=== PATIENT | male | born 1965 | race Two or more races ===

== ENCOUNTER 2017-05-03 22:44 | Inpatient (IN) | payer MEDICAID, OTHER ==
[~2017-05-03] VITALS: Ht 167.6 cm; Wt 55.3 kg
[~2017-05-03 22:44] MED LIST: ENAL-3 PO; FER325T PO; METO25TA62 PO; NOR10T PO; OCTR50IN; ROSU10TA16 PO; ROSU40TA PO; TRAM50TA2; TRAZ100T2 PO; TRAZ150T79 PO; WARF10TA
[2017-05-03] MEDS ORDERED: SODIUM CHLORIDE 0.9% 1,000 ML IVB ONE (23:57)
[2017-05-04 01:03] LABS: Basophils # (auto) 0 uL; Basophils % (auto) 0.3 % (0.0-2.0); Eosinophils # (auto) 0 uL; Eosinophils % (auto) 0.1 % (0.0-7.0); Hematocrit 38.2 % (41.0-53.0); Hemoglobin 12.8 g/dL (13.5-17.5); Lymphocytes # (auto) 0.8 uL; Lymphocytes % (auto) 7.1 % (10.0-50.0); Mean Corpuscular Hemoglobin 29.1 pg (28.0-32.0); Mean Corpuscular Hgb Conc. 33.6 g/dL (32.0-36.0); Mean Corpuscular Volume 86.6 fL (80.0-100.0); Mean Platelet Volume 8.1 fL (6.9-10.8); Monocytes # (auto) 0.7 uL; Monocytes % (auto) 6.2 % (0.0-12.0); Neutrophils # (auto) 10.3 uL; Neutrophils % (auto) 86.3 % (37.0-80.0); Platelet Count (auto) 335 10^3/uL (140-450); Red Cell Distribution Width 12.9 % (11.8-14.3); White Blood Cell 11.9 10^3/uL (4.4-10.8)
[2017-05-04 01:07] LABS: Allen Test Modified; Base Excess -0.1 mmol/L (-2.0-2.0); Blood 02Sat 97.5 % (96-100); Blood COHb 1.5 % (0.5-1.5); Blood MetHb 0.2 % (0.0-1.5); HCO3 24.2 mmol/L (22-26.0); HHb 2.5 % (0.0-5.0); MODE NASAL CANNULA; O2Hb 95.8 % (94.0-97.0); PCO2(T) 24.5 mmHg (35.0-45.0); PO2 123.9 mmHg (80.0-100.0); PO2(T) 74.9 mmHg (80.0-100.0); Sample Type Arterial; pH 7.421 (7.350-7.450)
[2017-05-04 01:14] LABS: Partial Thromboplastin Time 21.5 sec (22.64-33.71); Prothrombin Time 10.9 sec (9.37-12.3)
[2017-05-04 01:21] LABS: Albumin 3.3 g/dL (3.4-5.0); Calcium 8.7 mg/dL (8.5-10.1); Potassium 3.8 mmol/L (3.5-5.1)
[2017-05-04 01:23] LABS: Bilirubin, Total 0.5 mg/dL (0.2-1.0); Total Protein 6.8 g/dL (6.4-8.2)
[2017-05-04] MEDS ORDERED: LEVETIRACETAM INJ 1,000 MG in SODIUM CHL 0.9% 100 ML IV ONE (02:30)
[2017-05-04] MEDS ORDERED: ASPirin-EC 325mg tab PO ONE (02:30)
[2017-05-04] MEDS ORDERED: LEVETIRACETAM 500 MG/5ML INJ IV ONE ×3 (02:51→22:05)
[2017-05-04] MEDS ORDERED: ACETAMINOPHEN 325 MG TAB PO PRN (03:30)
[2017-05-04] MEDS ORDERED: ONDANSETRON HCL 4 MG/2 ML VIAL IV PRN (03:30)
[2017-05-04] MEDS ORDERED: DEXTROSE (50%) 50ML SYRG IV PRN (03:30)
[2017-05-04] MEDS ORDERED: MORPHINE SULF INJ 2 MG/ML SYRINGE 1ML IV PRN ×2 (03:30)
[2017-05-04] MEDS ORDERED: NITROGLYCERIN 0.4 MG SL TAB SL PRN (03:30)
[2017-05-04] MEDS: SODIUM CHLORIDE 0.9% 1,000 ML IV SCH ×2 (03:43→16:37)
[2017-05-04] MEDS: ENOXAPARIN SOD 40 MG/0.4 ML SYRINGE SC SCH ×2 (03:45→10:00)
[2017-05-04] MEDS: ACCU-CHEK COMFORT CURVE STRIP VI SCH ×3 (05:42→17:32)
[2017-05-04] MEDS: InsuLIN REG 1unit/0.01ml Soln (100units/ml) SC SCH ×3 (05:45→17:32)
[2017-05-04] MEDS: PANTOPRAZOLE 40 MG/10 ML VIAL IV SCH (10:00)
[2017-05-04] MEDS: ASPirin 81 mg TAB PO SCH (10:00)
[2017-05-04] MEDS: LEVETIRACETAM INJ 500 MG in SODIUM CHL 0.9% 100 ML IV SCH ×2 (10:40→22:43)
[2017-05-04] MEDS: HYDROcodone-ACET 5/325MG TAB PO PRN (16:48)
[2017-05-04 17:00] VITALS: BP 110/71
[2017-05-04 20:00] VITALS: BP 104/67
[2017-05-04] MEDS: CRESTOR 10 MG PO SCH (22:00)
[2017-05-04 23:35] VITALS: BP 104/61
[2017-05-05] VITALS (7 sets, daily range): BP systolic 93–151; BP diastolic 63–96
[2017-05-05] MEDS: ACCU-CHEK COMFORT CURVE STRIP VI SCH ×4 (00:05→17:51)
[2017-05-05] MEDS: InsuLIN REG 1unit/0.01ml Soln (100units/ml) SC SCH ×4 (00:12→17:51)
[2017-05-05] MEDS: HYDROcodone-ACET 5/325MG TAB PO PRN ×2 (00:39→17:42)
[2017-05-05] MEDS: SODIUM CHLORIDE 0.9% 1,000 ML IV SCH ×2 (03:53→16:57)
[2017-05-05 06:32] LABS: Basophils # (auto) 0.1 uL; Basophils % (auto) 0.4 % (0.0-2.0); Eosinophils # (auto) 0 uL; Eosinophils % (auto) 0.1 % (0.0-7.0); Hematocrit 36.4 % (41.0-53.0); Hemoglobin 12.3 g/dL (13.5-17.5); Lymphocytes % (auto) 4.8 % (10.0-50.0); Mean Corpuscular Hgb Conc. 33.8 g/dL (32.0-36.0); Mean Corpuscular Volume 88.8 fL (80.0-100.0); Mean Platelet Volume 8.5 fL (6.9-10.8); Monocytes # (auto) 0.9 uL; Neutrophils # (auto) 19.5 uL; Neutrophils % (auto) 90.7 % (37.0-80.0); Platelet Count (auto) 306 10^3/uL (140-450); Red Cell Distribution Width 13.2 % (11.8-14.3); White Blood Cell 21.5 10^3/uL (4.4-10.8)
[2017-05-05 06:51] LABS: Albumin 3.1 g/dL (3.4-5.0); BUN/Creatinine Ratio 16.7; Calcium 8.4 mg/dL (8.5-10.1); Potassium 3.2 mmol/L (3.5-5.1); Total Protein 6.4 g/dL (6.4-8.2)
[2017-05-05] MEDS: ASPirin 81 mg TAB PO SCH (10:13)
[2017-05-05] MEDS: PANTOPRAZOLE 40 MG/10 ML VIAL IV SCH (10:13)
[2017-05-05] MEDS: ENOXAPARIN SOD 40 MG/0.4 ML SYRINGE SC SCH (10:14)
[2017-05-05] MEDS ORDERED: POTASSIUM CHLORIDE 40 MEQ, LIDOCAINE 1% (LOCAL ANESTH.) 4 ML in SODIUM CHL 0.9% 100 ML IV ONE (10:30)
[2017-05-05] MEDS: LEVETIRACETAM INJ 500 MG in SODIUM CHL 0.9% 100 ML IV SCH (10:34)
[2017-05-05 19:57] LABS: Cholesterol 135 mg/dL (< 200); HDL Cholesterol 52 mg/dL (40-59); LDL Cholesterol 82 mg/dL (< 100); Triglycerides 83 mg/dL (< 150)
[2017-05-05] MEDS: CRESTOR 10 MG PO SCH (22:00)
[2017-05-06] MEDS: HYDROcodone-ACET 5/325MG TAB PO PRN ×2 (00:28→21:14)
[2017-05-06] MEDS: ACCU-CHEK COMFORT CURVE STRIP VI SCH ×4 (02:25→17:58)
[2017-05-06 05:45] VITALS: BP 149/58
[2017-05-06] MEDS: SODIUM CHLORIDE 0.9% 1,000 ML IV SCH ×2 (06:05→17:58)
[2017-05-06 07:12] LABS: Albumin 3.2 g/dL (3.4-5.0); BUN/Creatinine Ratio 16.7; Calcium 8.8 mg/dL (8.5-10.1); Potassium 3.3 mmol/L (3.5-5.1)
[2017-05-06 07:14] LABS: Basophils # (auto) 0 uL; Basophils % (auto) 0.2 % (0.0-2.0); Eosinophils # (auto) 0 uL; Eosinophils % (auto) 0.1 % (0.0-7.0); Hematocrit 39.1 % (41.0-53.0); Hemoglobin 12.9 g/dL (13.5-17.5); Lymphocytes % (auto) 5.6 % (10.0-50.0); Mean Corpuscular Hemoglobin 29.1 pg (28.0-32.0); Mean Corpuscular Hgb Conc. 33.1 g/dL (32.0-36.0); Mean Corpuscular Volume 87.8 fL (80.0-100.0); Mean Platelet Volume 9.1 fL (6.9-10.8); Monocytes # (auto) 0.7 uL; Monocytes % (auto) 3.6 % (0.0-12.0); Neutrophils # (auto) 16.6 uL; Neutrophils % (auto) 90.5 % (37.0-80.0); Nucleated Red Blood Cells % 0.1 %; Platelet Count (auto) 320 10^3/uL (140-450); Red Cell Distribution Width 12.8 % (11.8-14.3); White Blood Cell 18.4 10^3/uL (4.4-10.8)
[2017-05-06 07:15] LABS: Bilirubin, Total 0.8 mg/dL (0.2-1.0); Total Protein 6.7 g/dL (6.4-8.2)
[2017-05-06] MEDS: InsuLIN REG 1unit/0.01ml Soln (100units/ml) SC SCH ×4 (07:21→17:59)
[2017-05-06 08:00] VITALS: BP 139/81
[2017-05-06 08:24] VITALS: BP 179/81
[2017-05-06] MEDS ORDERED: LORazepam 2MG/ML-1ML VIAL IV ONE (09:00)
[2017-05-06] MEDS ORDERED: ASPirin 81 mg TAB PO SCH (10:00)
[2017-05-06] MEDS: PANTOPRAZOLE 40 MG/10 ML VIAL IV SCH (10:05)
[2017-05-06] MEDS: ENOXAPARIN SOD 40 MG/0.4 ML SYRINGE SC SCH (10:05)
[2017-05-06 14:09] VITALS: BP 128/62
[2017-05-06 17:00] VITALS: BP 153/81
[2017-05-06 21:30] VITALS: BP 136/79
[2017-05-06] MEDS ORDERED: ATORVASTATIN 20 MG TAB PO SCH (22:00)
[2017-05-07] MEDS: ACCU-CHEK COMFORT CURVE STRIP VI SCH ×2 (00:22→06:07)
[2017-05-07] MEDS: InsuLIN REG 1unit/0.01ml Soln (100units/ml) SC SCH ×2 (00:22→06:07)
[2017-05-07] MEDS: HYDROcodone-ACET 5/325MG TAB PO PRN (01:40)
[2017-05-07 04:58] VITALS: BP 138/80
[2017-05-07 07:55] VITALS: BP 132/62
[2017-05-07 11:04] VITALS: BP 132/62
== END 2017-05-07 13:45 | disposition home or self-care (01) | DRG 45 ==
LOC: EDBD 22:44 → ER 22:46 → TELE 22:47 → TELE-EAST 05-04 15:33
PROVIDERS: ADMIT Nurse Practitioner; ATTEND Internal Medicine
DX: I63.9 Cerebral infarction, unspecified (principal); G93.1 Anoxic brain damage, not elsewhere classified; E11.65 Type 2 diabetes mellitus with hyperglycemia; E44.1 Mild protein-calorie malnutrition; G40.909 Epilepsy, unspecified, not intractable, without status epilepticus; I10 Essential (primary) hypertension; E78.5 Hyperlipidemia, unspecified; F17.210 Nicotine dependence, cigarettes, uncomplicated; F12.10 Cannabis abuse, uncomplicated; F11.10 Opioid abuse, uncomplicated; I25.10 Atherosclerotic heart disease of native coronary artery without angina pectoris; K21.9 Gastro-esophageal reflux disease without esophagitis; Z79.82 Long term (current) use of aspirin; Z79.899 Other long term (current) drug therapy; Z80.6 Family history of leukemia; Z82.3 Family history of stroke; Z87.11 Personal history of peptic ulcer disease; I25.2 Old myocardial infarction; Z91.19 Patient's noncompliance with other medical treatment and regimen; Z95.5 Presence of coronary angioplasty implant and graft; Z68.1 Body mass index [BMI] 19.9 or less, adult; G81.91 Hemiplegia, unspecified affecting right dominant side
CPT/HCPCS: 36415; 36600; 70450; 71010; 80053; 80061; 80307; 80320; 82140; 82805; 82962; 83036; 83735; 85025; 85610; 85730; 87040; 87086; 87493; 92610; 93005; 93306; 93886; 95819; 96361; 96365; 96372; 96375; C9113; J1815; J2001; J2405